=== PATIENT | female | born 1935 | race Caucasian/White ===

== ENCOUNTER → 2016-12-31 | Outpatient (CLI) | payer MEDICARE, MEDICAID ==
[~2016-12-31] MED LIST: ASPIRIN E.C. 8181 MG PO; CALTRATE 600 +1 TAB PO; CYMBALTA; FERROUS SU325 MG/TAB PO; FERROUS SULFAT325 MG PO; FLEXERIL 1010 MG/TAB PO; FOLIC ACID 40400 MCG PO; FOSAMAX 70MG TA70 MG PO; GLUCOSAMINE & C1 CA1 PO; HYDROCODONE 1.480 ML PO; LORTAB 5/500 501 TAB PO; LORTAB PO; MACROBID100 MG PO; MOTRIN 200200 MG/TAB PO; MVI; NEXIUM PO; NORCO 325 MG-7.1 TAB PO; PERCOCET 325 MG1 TA2 PO; TUMS500 MG PO; TYLENOL 500MG500 MG PO; VALIUM 5MG T5 MG/TAB PO; VITAMIN C500 MG PO; ZANTAC 300300 MG PO
== END ==
LOC: COL.RAD 12-28 11:00
DX: M25.552 Pain in left hip (principal)
CPT/HCPCS: J3301; Q9967

== ENCOUNTER 2017-01-04 12:30 | Outpatient (RCR) | payer MEDICARE, MEDICAID | END 2017-01-05 08:02 | disposition home or self-care (01) | LOC: MKS.ESL.PT 12:30 | DX: M54.2 Cervicalgia (principal) | CPT/HCPCS: G8978-GP; G8979-GP; G8980-GP ==

== ENCOUNTER → 2017-03-23 | Outpatient (CLI) | payer MEDICARE, MEDICAID | LOC: COL.RAD 09:51 | DX: M21.751 Unequal limb length (acquired), right femur (principal); M21.752 Unequal limb length (acquired), left femur; Z96.653 Presence of artificial knee joint, bilateral ==

== ENCOUNTER 2017-04-02 12:30 | Outpatient (RCR) | payer MEDICARE, MEDICAID ==
[2017-06-01] MEDS ORDERED: TUMS EXTRA STR750 MG PO (02:30)
== END 2017-05-24 13:09 | disposition still patient (30) ==
LOC: MKS.ESL.PT 12:30
DX: M51.36 Other intervertebral disc degeneration, lumbar region (principal); M46.86 Other specified inflammatory spondylopathies, lumbar region
CPT/HCPCS: G8978-GP; G8979-GP; G8980-GP

== ENCOUNTER 2017-05-24 13:10 | Outpatient (RCR) | payer MEDICARE, MEDICAID ==
[2017-06-01] MEDS ORDERED: TUMS EXTRA STR750 MG PO (02:30)
== END 2017-05-24 13:49 | disposition still patient (30) ==
LOC: MKS.ESL.PT 13:10
DX: Z01.818 Encounter for other preprocedural examination (principal); Z96.641 Presence of right artificial hip joint; M16.11 Unilateral primary osteoarthritis, right hip
CPT/HCPCS: G8978-GP; G8979-GP; G8980-GP

== ENCOUNTER → 2017-05-25 | Outpatient (CLI) | payer MEDICARE, MEDICAID ==
[~2017-05-25] MED LIST changes: +TUMS EXTRA STR750 MG PO
[2017-05-25 16:58] LABS: HIV 1/2 Antibodies Non-Reactive; HIV-1p24 Antigen Non-Reactive
== END ==
LOC: COL.LAB 16:02
PROVIDERS: Orthopaedic Surgery
DX: Z01.812 Encounter for preprocedural laboratory examination (principal)

== ENCOUNTER → 2017-06-06 | Outpatient (REF) ==
[~2017-06-06] MED LIST changes: +NORCO 325 MG-51 TAB PO; +ULTRAM 50MG TAB50 MG PO
== END ==
LOC: ZCOL.LAB 15:52
DX: A49.9 Bacterial infection, unspecified (principal)

== ENCOUNTER 2017-10-25 12:30 | Outpatient (RCR) | payer MEDICARE, MEDICAID | END 2017-10-31 | LOC: MKS.ESL.PT | DX: Z47.89 Encounter for other orthopedic aftercare (principal); Z96.641 Presence of right artificial hip joint ==

== ENCOUNTER 2017-11-10 12:30 | Outpatient (RCR) | payer MEDICARE, MEDICAID | END 2017-11-11 08:22 | disposition home or self-care (01) | LOC: MKS.ESL.PT 12:30 | DX: Z47.1 Aftercare following joint replacement surgery (principal); Z96.641 Presence of right artificial hip joint | CPT/HCPCS: G8979-GP; G8980-GP ==

== ENCOUNTER → 2017-12-24 | Outpatient (CLI) | payer MEDICARE, MEDICAID ==
[2017-12-24 13:50] LABS: HEMATOCRIT 40.3 % (37.0-47.0); HEMOGLOBIN 13.1 g/dl (12.5-16.0); MEAN CELL VOLUME 97 fl (80.0-100.0); MEAN CORPUSCULAR HEMOGLOBIN 32 pg (27.0-31.0); MEAN CORPUSCULAR HGB CONC 33 g/dl (33.0-37.0); MEAN PLATELET VOLUME 10.5 fl (7.4-10.4); PLATELET COUNT 245 K/mm3 (130-400); RED BLOOD COUNT 4.15 M/mm3 (4.10-5.30); REDCELL DISTRIBUTION WIDTH-CV 13.2 % (11.5-14.5)
[2017-12-24 14:21] LABS: ERYTHROCYTE SEDIMENTATION RATE 7 mm/hr (0-30)
== END ==
LOC: COL.LAB 13:23
PROVIDERS: Orthopaedic Surgery
DX: Z96.641 Presence of right artificial hip joint (principal)

== ENCOUNTER → 2018-02-15 | Outpatient (CLI) | payer MEDICARE, MEDICAID | LOC: COL.VAS 02-14 13:15 | DX: M79.604 Pain in right leg (principal); R22.41 Localized swelling, mass and lump, right lower limb ==

== ENCOUNTER 2018-07-18 10:30 | Outpatient (RCR) | payer MEDICARE, MEDICAID | END 2018-08-14 | disposition home or self-care (01) | LOC: MKS.ESL.PT | DX: M48.00 Spinal stenosis, site unspecified (principal); M53.80 Other specified dorsopathies, site unspecified; M25.551 Pain in right hip; Z96.641 Presence of right artificial hip joint; R26.89 Other abnormalities of gait and mobility | CPT/HCPCS: G8978-GP; G8979-GP ==

== ENCOUNTER 2020-02-26 14:06 | Outpatient (RCR) | payer MEDICARE, MEDICAID | END 2020-02-26 14:22 | disposition home or self-care (01) | LOC: MKS.ESL.PT 14:06 | DX: R42 Dizziness and giddiness (principal) ==

== ENCOUNTER → 2020-10-25 | Outpatient (CLI) | payer MEDICARE ==
[~2020-10-25] MED LIST changes: +LIDODERM 5% PATC1 EA TP; +TYLENOL 325MG325 MG PO; +VOLTAREN GEL 1%1 TU TP
== END ==
LOC: COL.RAD 10-24 08:30
DX: N28.89 Other specified disorders of kidney and ureter (principal); K86.89 Other specified diseases of pancreas; M47.816 Spondylosis without myelopathy or radiculopathy, lumbar region; M47.817 Spondylosis without myelopathy or radiculopathy, lumbosacral region
CPT/HCPCS: Q9967

== ENCOUNTER 2021-01-15 13:00 | Outpatient (RCR) | payer MEDICARE ==
[~2021-01-15 13:00] MED LIST changes: -LIDODERM 5% PATC1 EA TP; -TYLENOL 325MG325 MG PO; -VOLTAREN GEL 1%1 TU TP
[2021-01-18] MEDS ORDERED: TYLENOL 325MG325 MG PO (19:49)
[2021-01-18] MEDS ORDERED: LIDODERM 5% PATC1 EA TP (19:49)
[2021-01-18] MEDS ORDERED: VOLTAREN GEL 1%1 TU TP (19:49)
== END 2021-03-06 | disposition home or self-care (01) ==
LOC: MKS.ESL.PT
DX: M54.5 Low back pain (principal)

== ENCOUNTER 2021-01-18 16:34 | Emergency (ER) | payer MEDICARE ==
[~2021-01-18] VITALS: Ht 162.6 cm; Wt 63.6 kg
[2021-01-18 16:47] VITALS: TEMP 98.7
[2021-01-18] MEDS ORDERED: LIDODERM 5% PATC1 EA TP (19:49)
[2021-01-18] MEDS ORDERED: TYLENOL 325MG325 MG PO (19:49)
[2021-01-18] MEDS ORDERED: VOLTAREN GEL 1%1 TU TP (19:49)
[2021-01-18 19:58] VITALS: BP 154/75; PULSE 80
== END 2021-01-18 19:55 | disposition home or self-care (01) ==
LOC: COL.ER 16:34
DX: G89.29 Other chronic pain (principal); M54.5 Low back pain; M25.551 Pain in right hip; Z79.891 Long term (current) use of opiate analgesic; W19.XXXA Unspecified fall, initial encounter
CPT/HCPCS: J1885; J8540

== ENCOUNTER → 2021-02-18 | Outpatient (CLI) | payer MEDICARE ==
[~2021-02-18] MED LIST changes: +LIDODERM 5% PATC1 EA TP; +TYLENOL 325MG325 MG PO; +VOLTAREN GEL 1%1 TU TP
== END ==
LOC: COL.RAD 12:45
DX: R22.32 Localized swelling, mass and lump, left upper limb (principal)

== ENCOUNTER 2021-06-18 12:45 | Outpatient (RCR) | payer MEDICARE | END 2021-08-05 | disposition home or self-care (01) | LOC: MKS.ESL.PT | DX: M48.061 Spinal stenosis, lumbar region without neurogenic claudication (principal) ==

== ENCOUNTER 2022-04-30 12:10 | Emergency (ER) | payer MEDICARE ==
[~2022-04-30] VITALS: Ht 162.6 cm; Wt 63.6 kg
[2022-04-30 12:19] VITALS: TEMP 97
[2022-04-30] MEDS ORDERED: ATARAX 25MG25 MG/TAB PO (15:05)
[2022-04-30 17:19] VITALS: BP 135/63; PULSE 54
== END 2022-04-30 17:23 | disposition short-term general hospital (02) ==
LOC: COL.ER 12:10 → SURG 13:43 → COL.ER 13:43
DX: S72.402A Unspecified fracture of lower end of left femur, initial encounter for closed fracture (principal); Z87.891 Personal history of nicotine dependence; Z98.890 Other specified postprocedural states; W01.0XXA Fall on same level from slipping, tripping and stumbling without subsequent striking against object, initial encounter; Y93.01 Activity, walking, marching and hiking
CPT/HCPCS: J1885; J2270

== ENCOUNTER 2022-06-26 15:10 | Emergency (ER) | payer MEDICARE ==
[~2022-06-26] VITALS: Ht 162.6 cm; Wt 57.3 kg
[2022-06-26 15:17] VITALS: TEMP 98.4
[2022-06-26 15:38] LABS: BASO % 0.7 % (0.0-2.0); EOS # 0.1 K/mm3 (0.0-0.7); EOS % 1.5 % (0.0-4.0); GRAN # 3.9 K/mm3 (1.4-6.5); GRAN % 65.6 % (42.2-75.2); LYMPH # 1.3 K/mm3 (1.2-3.4); LYMPH % 22.7 % (20.0-51.0); MEAN CELL VOLUME 90 fl (80.0-100.0); MEAN CORPUSCULAR HEMOGLOBIN 29 pg (27-31); MEAN CORPUSCULAR HGB CONC 32 g/dl (33.0-37.0); MEAN PLATELET VOLUME 9.9 fl (7.4-10.4); MONO # 0.5 K/mm3 (0.1-0.6); MONO % 9.2 % (1.7-9.3); PLATELET COUNT 332 K/mm3 (130-400); RED BLOOD COUNT 3.78 M/mm3 (4.10-5.30); REDCELL DISTRIBUTION WIDTH-CV 14.2 % (11.5-14.5)
[2022-06-26 15:39] LABS: HEMATOCRIT 34.1 % (37.0-47.0)
[2022-06-26 15:57] LABS: ALANINE AMINOTRANSFERASE 19 U/L (0-55); ALBUMIN 3.7 gm/dL (3.4-4.8); ALKALINE PHOSPHATASE 101 U/L (40-150); ANION GAP 7 mmol/L (7-16); AST,SGOT 19 U/L (5-34); BILIRUBIN,TOTAL 0.3 mg/dL (0.2-1.2); BLOOD UREA NITROGEN 14 mg/dL (10-20); CALCIUM 9.3 mg/dL (8.4-10.2); CARBON DIOXIDE 29 mmol/L (23-31); CHLORIDE 106 mmol/L (98-107); CREATININE, serum 0.86 mg/dL (0.57-1.11); GLUCOSE 98 mg/dL (70-99); LIPASE 30 U/L (8-78); POTASSIUM 4.2 mmol/L (3.5-4.5); SODIUM 142 mmol/L (136-145); TOTAL PROTEIN 7.1 gm/dL (6.2-8.1)
[2022-06-26 16:03] LABS: TROPONIN-I < 0.010 ng/mL (0.00-0.033)
[2022-06-26 17:43] VITALS: BP 144/74; PULSE 68
== END 2022-06-26 17:55 | disposition home or self-care (01) ==
LOC: COL.ER 15:10
PROVIDERS: Emergency Medicine
DX: R06.02 Shortness of breath (principal); Z96.652 Presence of left artificial knee joint; M79.89 Other specified soft tissue disorders; Z87.891 Personal history of nicotine dependence
CPT/HCPCS: Q9967

== ENCOUNTER → 2022-06-26 | Outpatient (CLI) | payer MEDICARE ==
[~2022-06-26] MED LIST changes: +ATARAX 25MG25 MG/TAB PO
[2022-06-26 13:52] LABS: BASO # 0.1 K/mm3 (0.0-0.2); BASO % 0.8 % (0.0-2.0); EOS # 0.1 K/mm3 (0.0-0.7); EOS % 1.3 % (0.0-4.0); GRAN # 4.1 K/mm3 (1.4-6.5); GRAN % 66.4 % (42.2-75.2); HEMATOCRIT 36.8 % (37.0-47.0); HEMOGLOBIN 11.5 g/dl (12.5-16.0); LYMPH # 1.5 K/mm3 (1.2-3.4); LYMPH % 23.3 % (20.0-51.0); MEAN CELL VOLUME 91 fl (80.0-100.0); MEAN CORPUSCULAR HEMOGLOBIN 29 pg (27-31); MEAN CORPUSCULAR HGB CONC 31 g/dl (33.0-37.0); MEAN PLATELET VOLUME 9.6 fl (7.4-10.4); MONO # 0.5 K/mm3 (0.1-0.6); MONO % 7.9 % (1.7-9.3); PLATELET COUNT 356 K/mm3 (130-400); RED BLOOD COUNT 4.04 M/mm3 (4.10-5.30)
== END ==
LOC: COL.LAB 13:03
DX: R06.09 Other forms of dyspnea (principal)